=== PATIENT | male | born 1995 | race Caucasian/White ===

== ENCOUNTER 2018-03-24 05:13 | Emergency (ER) | payer SELFPAY ==
--- NOTE | 2018-03-24 05:34 | ER ---
Nurse's Notes [facility] Name: David Lai Age: 22 yrs Sex: Male : 1995 Arrival Date: 03/24/2018 Time: 05:18 Bed 8 Private MD: Diagnosis: External hemorrhoids Presentation: 03/24 05:25 Presenting complaint: Patient states: he went to use the restroom when he woke up this aa1 morning and had a painful knot near his rectum. Transition of care: patient was not received from another setting of care. Onset of symptoms was March 24, 2018. Risk Assessment: Do you want to hurt yourself or someone else? Patient reports no desire to harm self or others. Initial Sepsis Screen: Does the patient meet any 2 criteria? No. Patient's initial sepsis screen is negative. Does the patient have a suspected source of infection? No. Patient's initial sepsis screen is negative. Care prior to arrival: None. 05:25 Method Of Arrival: Ambulatory aa1 05:25 Acuity: ASHLEY 3 aa1 Triage Assessment: 05:30 General: Appears in no apparent distress. uncomfortable, slender, Behavior is calm, bp cooperative, appropriate for age. Pain: Complains of pain in gluteal cleft. Historical: - Allergies: 05:27 No Known Allergies; aa1 - Home Meds: 05:27 None [Active]; aa1 - PMHx: 05:27 None; aa1 - PSHx: 05:27 hydrocele repair; aa1 - Immunization history:: Adult Immunizations up to date. - Social history:: Smoking status: Patient uses tobacco products, smokes one pack cigarettes per day. - Ebola Screening: : No symptoms or risks identified at this time. - Family history:: not pertinent. - Hospitalizations: : No recent hospitalization is reported. Screenin:40 Abuse screen: Denies threats or abuse. Denies injuries from another. Nutritional bp screening: No deficits noted. Tuberculosis screening: No symptoms or risk factors identified. Fall Risk None identified. Assessment: 05:20 General: Appears in no apparent distress. uncomfortable, Behavior is calm, cooperative, ao appropriate for age. Pain: Complains of pain in rectal. Neuro: Level of Consciousness is awake, alert, obeys commands, Oriented to person, place, time, situation, Appropriate for age Moves all extremities. Speech is normal, Facial symmetry appears normal. Cardiovascular: Capillary refill < 3 seconds Patient's skin is warm and dry. Respiratory: Airway is patent Respiratory effort is even, unlabored, Respiratory pattern is regular, symmetrical. GI: Abdomen is non-distended. GI: Reports Rectal like abscess that show up this morning. : No signs and/or symptoms were reported regarding the genitourinary system. EENT: No signs and/or symptoms were reported regarding the EENT system. Derm: Skin is intact, Skin is pink, warm \T\ dry. Skin temperature is warm. Musculoskeletal: No signs and/or symptoms reported regarding the musculoskeletal system. 05:40 Reassessment: PT D/C HOME AMBULATORY, DX WITH EXTERNAL HEMORRHOIDS. bp Vital Signs: 05:27 BP 111 / 73; Pulse 95; Resp 16; Temp 98.0(O); Pulse Ox 100% on R/A; Weight 61.23 kg; aa1 Height 5 ft. 9 in. (175.26 cm); Pain 7/10; 05:27 Body Mass Index 19.94 (61.23 kg, 175.26 cm) aa1 ED Course: 05:18 Patient arrived in ED. al2 05:19 Shekhar Land MD is Attending Physician. rn 05:27 Triage completed. aa1 05:27 Arm band placed on right wrist. Patient placed in an exam room, on a stretcher. aa1 05:33 Enrique Flores MD is Referral Physician. rn 05:39 Crow Tracy RN is Primary Nurse. ao 05:40 Patient has correct armband on for positive identification. Bed in low position. Call bp light in reach. 05:40 No provider procedures requiring assistance completed. Patient did not have IV access bp during this emergency room visit. Administered Medications: No medications were administered Outcome: 05:34 Discharge ordered by . rn 05:40 Discharged to home ambulatory. bp 05:40 Condition: stable 05:40 Discharge instructions given to patient, Instructed on discharge instructions, follow up and referral plans. medication usage, Demonstrated understanding of instructions, follow-up care, medications, Prescriptions given X 1. 05:42 Patient left the ED. ao Signatures: Zahira Castillo RN RN aa1 Land, Shekhar, MD MD rn Tracy, Crow, RN RN ao Syeda, Tommy, RN RN bp Love, Kendra al2
--- NOTE | 2018-03-24 05:34 | EDPHYS ---
Physician Documentation [facility] Name: David Lai Age: 22 yrs Sex: Male : 1995 Arrival Date: 03/24/2018 Time: 05:18 Bed 8 Private MD: ED Physician Shekhar Land HPI: 03/24 05:30 This 22 yrs old Male presents to ER via Ambulatory with complaints of Rectal rn pain/swelling. 05:30 The patient presents to the emergency department with pain in the rectal area, that is rn mild. Onset: The symptoms/episode began/occurred at an unknown time. Modifying factors: The symptoms are alleviated by nothing, The symptoms are aggravated by bowel movement. It is unknown whether or not the patient has had similar symptoms in the past. Reports noticed swelling near anus today when wiping, no fever, only pain when wipes, has noticed bright red blood when wiping in past. . Historical: - Allergies: 05:27 No Known Allergies; aa1 - Home Meds: 05:27 None [Active]; aa1 - PMHx: 05:27 None; aa1 - PSHx: 05:27 hydrocele repair; aa1 - Immunization history:: Adult Immunizations up to date. - Social history:: Smoking status: Patient uses tobacco products, smokes one pack cigarettes per day. - Ebola Screening: : No symptoms or risks identified at this time. - Family history:: not pertinent. - Hospitalizations: : No recent hospitalization is reported. ROS: 05:30 Constitutional: Negative for fever, chills, and weight loss, Abdomen/GI: + constipation rn Exam: 05:30 Constitutional: This is a well developed, well nourished patient who is awake, alert, rn and in no acute distress. Abdomen/GI: Soft, non-tender, No evidence of tenderness throughout. + external enlarged but not thrombosed hemorrhoid at 9 o'clock position, mild tenderness, no erythema/warmth/bleeding Vital Signs: 05:27 BP 111 / 73; Pulse 95; Resp 16; Temp 98.0(O); Pulse Ox 100% on R/A; Weight 61.23 kg; aa1 Height 5 ft. 9 in. (175.26 cm); Pain 7/10; 05:27 Body Mass Index 19.94 (61.23 kg, 175.26 cm) aa1 MDM: 05:19 Patient medically screened. rn 05:30 Differential diagnosis: hemorrhoids, abscess. Data reviewed: vital signs, nurses notes, rn and as a result, I will discharge patient. Counseling: I had a detailed discussion with the patient and/or guardian regarding: the historical points, exam findings, and any diagnostic results supporting the discharge/admit diagnosis, the need for outpatient follow up, to return to the emergency department if symptoms worsen or persist or if there are any questions or concerns that arise at home. Special discussion: I discussed with the patient/guardian in detail that at this point there is no indication for admission to the hospital. It is understood, however, that if the symptoms persist or worsen the patient needs to return immediately for re-evaluation. Based on the history and exam findings, there is no indication for further emergent testing or inpatient evaluation. I discussed with the patient/guardian the need to see the general surgeon for further evaluation of the symptoms. Administered Medications: No medications were administered Disposition: 03/24/18 05:34 Discharged to Home. Impression: External hemorrhoids. - Condition is Stable. - Discharge Instructions: Hemorrhoids, Sitz Bath. - Prescriptions for Anusol- HC 2.5 % Rectal Cream - Apply to affected area 1 application by TOPICAL route every 8 hours As needed; 30 gram. - Medication Reconciliation Form, Thank You Letter, Antibiotic Education, Prescription Opioid Use form. - Follow up: Enrique Flores MD; When: As needed; Reason: Recheck today's complaints, Re-evaluation by your physician. - Problem is new. - Symptoms are unchanged. Signatures: Zahira Castillo RN RN aa1 Shekhar Land MD MD rn Ortiz, Alex, RN RN ao Corrections: (The following items were deleted from the chart) 05:42 05:34 03/24/2018 05:34 Discharged to Home. Impression: External hemorrhoids. Condition ao is Stable. Forms are Medication Reconciliation Form, Thank You Letter, Antibiotic Education, Prescription Opioid Use. Follow up: Enrique Flores; When: As needed; Reason: Recheck today's complaints, Re-evaluation by your physician. Problem is new. Symptoms are unchanged. rn
== END 2018-03-24 05:42 | disposition home or self-care (01) ==
LOC: ER 05:13
DX: K64.4 Residual hemorrhoidal skin tags (principal); F17.210 Nicotine dependence, cigarettes, uncomplicated
CPT/HCPCS: 99282

== ENCOUNTER 2018-12-25 18:36 | Emergency (ER) | payer SELFPAY ==
--- NOTE | 2018-12-25 19:53 | ER ---
Nurse's Notes [facility] Name: David Lai Age: 23 yrs Sex: Male : 1995 Arrival Date: 12/25/2018 Time: 18:39 Bed 27 Private MD: Diagnosis: Cough Presentation: 12/25 18:46 Presenting complaint: Patient states: left sided rib pain with cough and shortness of iw breath for a few days, reports chills but denies fever. Transition of care: patient was not received from another setting of care. Onset of symptoms was December 25, 2018. Risk Assessment: Do you want to hurt yourself or someone else? Patient reports no desire to harm self or others. Initial Sepsis Screen: Does the patient meet any 2 criteria? No. Patient's initial sepsis screen is negative. Does the patient have a suspected source of infection? No. Patient's initial sepsis screen is negative. Care prior to arrival: None. 18:46 Method Of Arrival: Ambulatory iw 18:46 Acuity: ASHLEY 4 iw Triage Assessment: 18:58 General: Appears in no apparent distress. comfortable. Respiratory: the patient has mg2 mild shortness of breath. Respiratory: Onset: The symptoms/episode began/occurred 4 days ago. Historical: - Allergies: 18:46 No Known Allergies; iw - PMHx: 18:46 None; iw - PSHx: 18:46 hydrocele repair; iw - Immunization history:: Adult Immunizations up to date. - Social history:: Smoking status: Patient uses tobacco products. - Ebola Screening: : Patient negative for fever greater than or equal to 101.5 degrees Fahrenheit, and additional compatible Ebola Virus Disease symptoms Patient denies exposure to infectious person Patient denies travel to an Ebola-affected area in the 21 days before illness onset No symptoms or risks identified at this time. Screenin:57 Abuse screen: Denies threats or abuse. Denies injuries from another. Nutritional mg2 screening: No deficits noted. Tuberculosis screening: No symptoms or risk factors identified. Fall Risk None identified. Assessment: 18:55 General: Appears in no apparent distress. comfortable, Behavior is calm, cooperative. mg2 Pain: Denies pain. Neuro: Level of Consciousness is awake, alert, obeys commands, Oriented to person, place, time, situation. Cardiovascular: Capillary refill < 3 seconds Patient's skin is warm and dry. Respiratory: Airway is patent Respiratory effort is even, unlabored, Respiratory pattern is regular, symmetrical, Breath sounds are clear bilaterally. in right upper lobe, left upper lobe, right middle lobe, left lower lobe and right lower lobe. Respiratory: Reports cough that is productive, since 4 days now. GI: No signs and/or symptoms were reported involving the gastrointestinal system. : No signs and/or symptoms were reported regarding the genitourinary system. EENT: No signs and/or symptoms were reported regarding the EENT system. Derm: Skin is intact, is healthy with good turgor, Skin is pink, warm \T\ dry. normal. Musculoskeletal: Circulation, motion, and sensation intact. Capillary refill < 3 seconds. 19:30 Cardiovascular: Rhythm is regular. mg2 Vital Signs: 18:47 BP 121 / 71; Pulse 77; Resp 16; Temp 98.8; Pulse Ox 98% on R/A; Weight 65.77 kg; Pain iw 6/10; 19:50 BP 104 / 75; Pulse 88; Resp 18; Pulse Ox 98% on R/A; Pain 0/10; mg2 ED Course: 18:39 Patient arrived in ED. rg4 18:39 Farrah Bray FNP-C [facility]. kb 18:39 Shekhar Land MD is Attending Physician. kb 18:45 Arm band placed on. iw 18:47 Sean Devries, RN is Primary Nurse. mg2 18:47 Triage completed. iw 18:57 No provider procedures requiring assistance completed. Patient did not have IV access mg2 during this emergency room visit. 18:58 Chest Pa And Lat (2 Views) XRAY In Process Unspecified. EDMS 18:58 Patient has correct armband on for positive identification. mg2 18:58 Flu and/or RSV swab sent to lab. mg2 Administered Medications: No medications were administered Outcome: 19:53 Discharge ordered by . kb 19:59 Discharged to home ambulatory. mg2 19:59 Condition: stable 19:59 Discharge instructions given to patient, Instructed on discharge instructions, follow up and referral plans. Demonstrated understanding of instructions, follow-up care. 20:00 Patient left the ED. mg2 Signatures: Dispatcher [employer] EDIA Farrah Bray FNP-C FNP-Evelina Baker RN RN Ange Velazquez rg4 Gardose, Sean, RN RN mg2
--- NOTE | 2018-12-25 19:53 | EDPHYS ---
Physician Documentation [facility] Name: David Lai Age: 23 yrs Sex: Male : 1995 Arrival Date: 12/25/2018 Time: 18:39 Bed 27 Private MD: ED Physician Shekhar Land HPI: 12/25 18:45 This 23 yrs old Male presents to ER via Unassigned with complaints of Cough, kb Breathing Difficulty. 18:45 The patient or guardian reports cough, that is intermittent, described as moderate, kb with productive sputum. Onset: The symptoms/episode began/occurred 4 day(s) ago. Severity of symptoms: At their worst the symptoms were moderate, in the emergency department the symptoms are unchanged. Modifying factors: The symptoms are alleviated by nothing, the symptoms are aggravated by nothing. Associated signs and symptoms: Pertinent positives: chest pain, Pertinent negatives: diarrhea, ear ache, fever, nausea, rhinorrhea, sore throat, vomiting. The patient has not experienced similar symptoms in the past. The patient has not recently seen a physician. Pt reports cough for 4 days. Now having pain to left lower chest with cough and deep breath. Historical: - Allergies: 18:46 No Known Allergies; iw - PMHx: 18:46 None; iw - PSHx: 18:46 hydrocele repair; iw - Immunization history:: Adult Immunizations up to date. - Social history:: Smoking status: Patient uses tobacco products. - Ebola Screening: : Patient negative for fever greater than or equal to 101.5 degrees Fahrenheit, and additional compatible Ebola Virus Disease symptoms Patient denies exposure to infectious person Patient denies travel to an Ebola-affected area in the 21 days before illness onset No symptoms or risks identified at this time. ROS: 18:46 Constitutional: Negative for fever, chills, and weight loss, Neck: Negative for injury, kb pain, and swelling, Abdomen/GI: Negative for abdominal pain, nausea, vomiting, diarrhea, and constipation, Back: Negative for injury and pain, MS/Extremity: Negative for injury and deformity, Skin: Negative for injury, rash, and discoloration, Neuro: Negative for headache, weakness, numbness, tingling, and seizure. 18:46 Cardiovascular: Positive for chest pain, with cough, Negative for edema, orthopnea, palpitations, paroxysmal nocturnal dyspnea. 18:46 Respiratory: Positive for cough. Exam: 18:47 Constitutional: This is a well developed, well nourished patient who is awake, alert, kb and in no acute distress. Head/Face: Normocephalic, atraumatic. ENT: Nares patent. No nasal discharge, no septal abnormalities noted. Tympanic membranes are normal and external auditory canals are clear. Oropharynx with no redness, swelling, or masses, exudates, or evidence of obstruction, uvula midline. Mucous membranes moist. Neck: Trachea midline, no thyromegaly or masses palpated, and no cervical lymphadenopathy. Supple, full range of motion without nuchal rigidity, or vertebral point tenderness. No Meningismus. Chest/axilla: Normal chest wall appearance and motion. Nontender with no deformity. No lesions are appreciated. Cardiovascular: Regular rate and rhythm with a normal S1 and S2. No gallops, murmurs, or rubs. Normal PMI, no JVD. No pulse deficits. Respiratory: Lungs have equal breath sounds bilaterally, clear to auscultation and percussion. No rales, rhonchi or wheezes noted. No increased work of breathing, no retractions or nasal flaring. Abdomen/GI: Soft, non-tender, with normal bowel sounds. No distension or tympany. No guarding or rebound. No evidence of tenderness throughout. Back: No spinal tenderness. No costovertebral tenderness. Full range of motion. Skin: Warm, dry with normal turgor. Normal color with no rashes, no lesions, and no evidence of cellulitis. MS/ Extremity: Pulses equal, no cyanosis. Neurovascular intact. Full, normal range of motion. Neuro: Awake and alert, GCS 15, oriented to person, place, time, and situation. Cranial nerves II-XII grossly intact. Motor strength 5/5 in all extremities. Sensory grossly intact. Cerebellar exam normal. Normal gait. Vital Signs: 18:47 BP 121 / 71; Pulse 77; Resp 16; Temp 98.8; Pulse Ox 98% on R/A; Weight 65.77 kg; Pain iw 6/10; 19:50 BP 104 / 75; Pulse 88; Resp 18; Pulse Ox 98% on R/A; Pain 0/10; mg2 MDM: 18:42 Patient medically screened. kb 18:47 Data reviewed: vital signs, nurses notes. kb 19:52 Data interpreted: Pulse oximetry: on room air is 98 %. Interpretation: normal. kb Counseling: I had a detailed discussion with the patient and/or guardian regarding: the historical points, exam findings, and any diagnostic results supporting the discharge/admit diagnosis, lab results, radiology results, the need for outpatient follow up, a family practitioner, to return to the emergency department if symptoms worsen or persist or if there are any questions or concerns that arise at home. 12/25 18:44 Order name: Flu; Complete Time: 19:27 kb 12/25 18:44 Order name: Chest Pa And Lat (2 Views) XRAY kb Administered Medications: No medications were administered Disposition: 12/26 07:00 Co-signature as Attending Physician, Shekhar Land MD. rn Disposition: 12/25/18 19:53 Discharged to Home. Impression: Cough. - Condition is Stable. - Discharge Instructions: Costochondritis, [id number], Cough, Adult, [id number]. - Medication Reconciliation Form, Thank You Letter, Antibiotic Education, Prescription Opioid Use form. - Follow up: Emergency Department; When: As needed; Reason: Worsening of condition. Follow up: Private Physician; When: 2 - 3 days; Reason: Recheck today's complaints, Continuance of care, Re-evaluation by your physician. Signatures: Dispatcher [employer] EDSD Farrah Bray, WEBSPHERE DEVELOPER-C WEBSPHERE DEVELOPER-Ckb Evelina Chakraborty RN RN iw Nieto, Roman, MD MD rn Gardose, Michele, RN RN mg2 Corrections: (The following items were deleted from the chart) 12/25 20:00 19:53 12/25/2018 19:53 Discharged to Home. Impression: Cough. Condition is Stable. mg2 Forms are Medication Reconciliation Form, Thank You Letter, Antibiotic Education, Prescription Opioid Use. Follow up: Emergency Department; When: As needed; Reason: Worsening of condition. Follow up: Private Physician; When: 2 - 3 days; Reason: Recheck today's complaints, Continuance of care, Re-evaluation by your physician. kb
--- NOTE | 2018-12-25 20:21 | RAD REPORT ---
EXAM DESCRIPTION: RAD - Chest Pa And Lat (2 Views) - 12/25/2018 7:01 pm CLINICAL HISTORY: Cough, left-sided chest and rib pain COMPARISON: None. TECHNIQUE: PA and lateral views of the chest were obtained. FINDINGS: The lungs are clear. Heart size is normal and central vasculature is within normal limit s. No pleural effusion or pneumothorax seen. No acute bony finding noted. No aortic abnormality. IMPRESSION: No acute cardiopulmonary process.
== END 2018-12-25 20:00 | disposition home or self-care (01) ==
LOC: ER 18:36
DX: R05 Cough (principal); Z72.0 Tobacco use
CPT/HCPCS: 71046; 87804; 99283

== ENCOUNTER 2018-12-27 05:36 | Emergency (ER) | payer SELFPAY ==
[2018-12-27] MEDS ORDERED: KETOROLAC 30 MG/ML INJ ONE (06:29)
[2018-12-27] MEDS ORDERED: NA CHLORIDE 0.9% 1,000 ML ONE ×2 (06:29→07:11)
[2018-12-27 06:38] LABS: Absolute Lymphocytes (CBC) 2.2 K/uL (0.7-4.9); Absolute Monocytes 0.6 K/uL (0.1-1.3); Absolute Neutrophil 3.7 K/uL (1.8-8.0); Basophils % 0.9 % (0-1.3); Eosinophils % 1.6 % (0-4.4); Hematocrit 56.7 % (39.6-49.0); Lymphocytes % 33.2 % (15.3-44.8); MPV 8.9 fL (7.6-11.3); Monocytes % 9.4 % (3.3-12.3); RBC Red Blood Cell Count 6.22 M/uL (4.33-5.43)
[2018-12-27 06:56] LABS: Potassium 3.4 mmol/L (3.5-5.1)
--- NOTE | 2018-12-27 07:51 | RAD REPORT ---
EXAM DESCRIPTION: CT - Chest For Pe Angio - 12/27/2018 7:35 am CLINICAL HISTORY: Chest pain, shortness of breath, rib pain COMPARISON: Chest films same date TECHNIQUE: Dynamically enhanced 3 mm thick images of the chest were obtained during administration o f approximately 150mL Isovue 370 IV contrast. Coronal and oblique MIP reconstruction images were gene rated and reviewed. Exam utilizes a protocol to evaluate the pulmonary arterial tree. All CT scans are performed using dose optimization technique as appropriate and may include automated exposure control or mA/KV adjustment according to patient size. FINDINGS: No pulmonary emboli are identified. The aorta as imaged shows no acute or suspicious finding. No pericardial thickening or effusion. No infiltrate or mass in the lung parenchyma. No pleural effusion or pleural thickening. No mediastinal or hilar suspicious masses. No chest wall masses or abnormal axillary lymphadenopathy. No fracture or other rib lesion identifiable. Portions of the inferior most aspect ribcage excluded f rom view on CT chest imaging. IMPRESSION: No pulmonary emboli identified. No other significant or suspicious findings.
--- NOTE | 2018-12-27 09:23 | EDPHYS ---
Physician Documentation [facility] Name: David Lai Age: 23 yrs Sex: Male : 1995 Arrival Date: 12/27/2018 Time: 05:37 Bed 6 Private MD: ED Physician Reid Brock HPI: 12/27 06:53 This 23 yrs old Male presents to ER via Ambulatory with complaints of Painful snw Cough. 06:53 The patient or guardian reports cough. Onset: The symptoms/episode began/occurred 1 snw week(s) ago, and became worse yesterday. Severity of symptoms: At their worst the symptoms were moderate, severe. Modifying factors: The symptoms are alleviated by nothing. Associated signs and symptoms: Pertinent positives: chest pain, with cough, with movement, with breathing. The patient has not experienced similar symptoms in the past. The patient has been recently seen by a physician: The patient has been recently seen at the [facility], this week. Historical: - Allergies: 05:48 No Known Allergies; bb - Home Meds: 05:48 None [Active]; bb - PMHx: 05:48 None; bb - PSHx: 05:48 hydrocelectomy; bb - Immunization history:: Adult Immunizations up to date. - Social history:: Smoking status: Patient uses tobacco products, smokes one pack cigarettes per day. Patient uses alcohol, weekly. street drugs, marijuana. - Ebola Screening: : No symptoms or risks identified at this time. ROS: 06:18 Constitutional: Negative for fever, chills, and weight loss, Eyes: Negative for injury, snw pain, redness, and discharge, ENT: Negative for injury, pain, and discharge, Neck: Negative for injury, pain, and swelling, Abdomen/GI: Negative for abdominal pain, nausea, vomiting, diarrhea, and constipation, Back: Negative for injury and pain, : Negative for injury, bleeding, discharge, and swelling, MS/Extremity: Negative for injury and deformity, Skin: Negative for injury, rash, and discoloration, Neuro: Negative for headache, weakness, numbness, tingling, and seizure. 06:18 Cardiovascular: Positive for chest pain, with cough, with movement, of the left lateral anterior chest. 06:18 Respiratory: Positive for cough, with no reported sputum, pleurisy, of the left lateral anterior chest. Exam: 06:18 Head/Face: Normocephalic, atraumatic. Eyes: Pupils equal round and reactive to light, snw extra-ocular motions intact. Lids and lashes normal. Conjunctiva and sclera are non-icteric and not injected. Cornea within normal limits. Periorbital areas with no swelling, redness, or edema. ENT: Nares patent. No nasal discharge, no septal abnormalities noted. Tympanic membranes are normal and external auditory canals are clear. Oropharynx with no redness, swelling, or masses, exudates, or evidence of obstruction, uvula midline. Mucous membranes moist. Neck: Trachea midline, no thyromegaly or masses palpated, and no cervical lymphadenopathy. Supple, full range of motion without nuchal rigidity, or vertebral point tenderness. No Meningismus. 06:18 Cardiovascular: Regular rate and rhythm with a normal S1 and S2. No gallops, murmurs, or rubs. Normal PMI, no JVD. No pulse deficits. 06:18 Abdomen/GI: Soft, non-tender, with normal bowel sounds. No distension or tympany. No guarding or rebound. No evidence of tenderness throughout. Back: No spinal tenderness. No costovertebral tenderness. Full range of motion. Skin: Warm, dry with normal turgor. Normal color with no rashes, no lesions, and no evidence of cellulitis. MS/ Extremity: Pulses equal, no cyanosis. Neurovascular intact. Full, normal range of motion. Neuro: Awake and alert, GCS 15, oriented to person, place, time, and situation. Cranial nerves II-XII grossly intact. Motor strength 5/5 in all extremities. Sensory grossly intact. Cerebellar exam normal. Normal gait. 06:18 Constitutional: The patient appears frail, in obvious pain, uncomfortable, unkempt. 06:18 Chest/axilla: Inspection: normal, Palpation: tenderness, that is moderate, of the left lateral anterior chest and left breast. 06:18 ECG was reviewed by the Attending Physician. 06:18 Respiratory: the patient does not display signs of respiratory distress, Respirations: shallow respirations, splinting, that is moderate, Breath sounds: are clear throughout. Vital Signs: 05:48 BP 128 / 81; Pulse 88; Resp 16 S; Temp 97.6(O); Pulse Ox 97% on R/A; Weight 63.5 kg bb (R); Height 5 ft. 9 in. (175.26 cm) (R); Pain 10/10; 06:30 BP 111 / 69; Pulse 82; Resp 17; Pulse Ox 98% ; rr5 07:13 BP 112 / 65; Pulse 66; Resp 18; Pulse Ox 97% on R/A; hj 08:30 BP 97 / 75; Pulse 48; Resp 18; Pulse Ox 100% on R/A; hj 09:35 BP 100 / 75; Pulse 55; Resp 18; Pulse Ox 100% on R/A; hj 05:48 Body Mass Index 20.67 (63.50 kg, 175.26 cm) bb 08:30 provider aware; hj MDM: 06:08 Patient medically screened. snw 09:23 Data reviewed: vital signs, nurses notes. Data interpreted: Pulse oximetry: on room air snw is 100 %. Interpretation: normal. Counseling: I had a detailed discussion with the patient and/or guardian regarding: the historical points, exam findings, and any diagnostic results supporting the discharge/admit diagnosis, lab results, radiology results, the need for outpatient follow up, to return to the emergency department if symptoms worsen or persist or if there are any questions or concerns that arise at home, smoking cessation. Special discussion: Based on the patient's history, exam, and Dx evaluation, there is no indication for emergent intervention or inpatient Tx. It is understood by the patient/guardian that if the Sx's persist or worsen they need to return immediately for re-evaluation. Based on the history and exam findings, there is no indication for further emergent testing or inpatient evaluation. I discussed with the patient/guardian the need to see the primary care provider for further evaluation of the symptoms. 12/27 06:14 Order name: CBC with Diff; Complete Time: 06:56 snw 12/27 06:14 Order name: Blood Culture Adult (2) snw 12/27 06:14 Order name: CT Chest For PE Angio; Complete Time: 07:56 snw 12/27 06:14 Order name: Chem 7; Complete Time: 06:57 snw 12/27 06:14 Order name: EKG; Complete Time: 06:15 snw Administered Medications: 06:30 Drug: NS 0.9% 1000 ml Route: IV; Rate: 1 bolus; Site: right antecubital; rr5 08:00 Follow up: IV Status: Completed infusion; IV Intake: 1000ml hj 06:30 Drug: NS 0.9% 1000 ml Route: IV; Rate: 1 bolus; Site: right antecubital; ea 09:35 Follow up: IV Status: Completed infusion; IV Intake: 1000ml hj 06:31 Drug: TORadol 30 mg Route: IVP; Site: right antecubital; rr5 07:00 Follow up: Response: No adverse reaction lobo Disposition: 19:03 Co-signature as Attending Physician, Reid Brock MD. brandon Disposition: 12/27/18 09:22 Discharged to Home. Impression: Pleurisy, Volume depletion. - Condition is Stable. - Discharge Instructions: Dehydration, Adult, Pleurisy, Rehydration, Adult. - Prescriptions for Diclofenac Sodium 75 mg Oral Tablet Sustained Release - take 1 tablet by ORAL route 2 times per day; 30 tablet. - Medication Reconciliation Form, Thank You Letter, Antibiotic Education, Prescription Opioid Use form. - Follow up: Private Physician; When: 2 - 3 days; Reason: Recheck today's complaints, Continuance of care, Re-evaluation by your physician. Follow up: Emergency Department; When: As needed; Reason: Worsening of condition. Signatures: Dispatcher [employer] EDMS Reid Brock MD MD pkRamona Fisher, PEDIATRIC DENTIST-C PEDIATRIC DENTIST-Csnw Xochitl Clayton RN RN bb Joaquin, Henry, RN RN hj Antunez, Elena, RN RN ea Roque, Raymond RN RN rr5 Corrections: (The following items were deleted from the chart) 09:45 09:22 12/27/2018 09:22 Discharged to Home. Impression: Pleurisy; Volume depletion. hj Condition is Stable. Forms are Medication Reconciliation Form, Thank You Letter, Antibiotic Education, Prescription Opioid Use. Follow up: Private Physician; When: 2 - 3 days; Reason: Recheck today's complaints, Continuance of care, Re-evaluation by your physician. Follow up: Emergency Department; When: As needed; Reason: Worsening of condition. snw
--- NOTE | 2018-12-27 09:23 | ER ---
Nurse's Notes [facility] Name: David Lai Age: 23 yrs Sex: Male : 1995 Arrival Date: 12/27/2018 Time: 05:37 Bed 6 Private MD: Diagnosis: Pleurisy;Volume depletion Presentation: 12/27 05:45 Presenting complaint: Patient states: he was seen yesterday for rib pain and told to bb return if symptoms worsen pt states now he is unable to get comfortable and is having left side pain which hurts worse whenever he moves. Transition of care: patient was not received from another setting of care. Onset of symptoms was December 27, 2018. Risk Assessment: Do you want to hurt yourself or someone else? Patient reports no desire to harm self or others. Initial Sepsis Screen: Does the patient meet any 2 criteria? No. Patient's initial sepsis screen is negative. Does the patient have a suspected source of infection? No. Patient's initial sepsis screen is negative. Care prior to arrival: None. 05:45 Method Of Arrival: Ambulatory bb 05:45 Acuity: ASHLEY 3 bb Historical: - Allergies: 05:48 No Known Allergies; bb - Home Meds: 05:48 None [Active]; bb - PMHx: 05:48 None; bb - PSHx: 05:48 hydrocelectomy; bb - Immunization history:: Adult Immunizations up to date. - Social history:: Smoking status: Patient uses tobacco products, smokes one pack cigarettes per day. Patient uses alcohol, weekly. street drugs, marijuana. - Ebola Screening: : No symptoms or risks identified at this time. Screenin:46 Abuse screen: Denies threats or abuse. Denies injuries from another. Nutritional rr5 screening: No deficits noted. Tuberculosis screening: No symptoms or risk factors identified. Fall Risk None identified. Total Dubois Fall Scale indicates No Risk (0-24 pts). Assessment: 05:45 General: Appears in no apparent distress. uncomfortable, Behavior is calm, cooperative, rr5 appropriate for age. Pain: Complains of pain in left chest Pain does not radiate. Pain currently is 10 out of 10 on a pain scale. Quality of pain is described as aching, Pain began gradually, Is intermittent. Neuro: Level of Consciousness is awake, alert, obeys commands, Oriented to person, place, time, situation, Appropriate for age. Cardiovascular: Reports chest pain, Capillary refill < 3 seconds Patient's skin is warm and dry. Respiratory: Airway is patent Respiratory effort is even, unlabored, Respiratory pattern is regular, symmetrical. GI: No signs and/or symptoms were reported involving the gastrointestinal system. : No signs and/or symptoms were reported regarding the genitourinary system. EENT: No signs and/or symptoms were reported regarding the EENT system. 05:45 Derm: Skin is intact, Skin temperature is warm. Musculoskeletal: Capillary refill < 3 rr5 seconds, Range of motion: intact in all extremities. 05:45 Respiratory: Reports pain with cough. rr5 06:32 Reassessment: Patient appears in no apparent distress at this time. No changes from rr5 previously documented assessment. Patient is alert, oriented x 3, equal unlabored respirations, skin warm/dry/pink. blood specimen sent to laboratory. 07:11 General: Appears in no apparent distress. uncomfortable, Behavior is calm, cooperative, hj appropriate for age. Pain: Complains of pain in left breast and left lateral anterior chest Pain currently is 5 out of 10 on a pain scale. Quality of pain is described as aching, Pain began gradually, Is intermittent. Neuro: Level of Consciousness is awake, alert, obeys commands, Oriented to person, place, time, situation, Appropriate for age. Cardiovascular: Capillary refill < 3 seconds Patient's skin is warm and dry. Respiratory: Reports pain with cough Airway is patent Respiratory effort is even, unlabored, Respiratory pattern is regular, symmetrical. GI: No signs and/or symptoms were reported involving the gastrointestinal system. : No signs and/or symptoms were reported regarding the genitourinary system. EENT: No signs and/or symptoms were reported regarding the EENT system. Derm: Skin is intact, Skin temperature is warm. Musculoskeletal: Capillary refill < 3 seconds, Range of motion:. 07:29 Reassessment: wheeled to CT;. hj 08:30 Reassessment: Patient and/or family updated on plan of care and expected duration. Pain hj level reassessed. Patient is alert, oriented x 3, equal unlabored respirations, skin warm/dry/pink. HR drops from 70's- 48-49/ min; provider notified;. 09:34 Reassessment: Patient and/or family updated on plan of care and expected duration. Pain hj level reassessed. Patient is alert, oriented x 3, equal unlabored respirations, skin warm/dry/pink. for D/C; awaiting ride;. 09:42 Reassessment: per pt: "i couldn't pee man"; provider aware;. hj Vital Signs: 05:48 BP 128 / 81; Pulse 88; Resp 16 S; Temp 97.6(O); Pulse Ox 97% on R/A; Weight 63.5 kg bb (R); Height 5 ft. 9 in. (175.26 cm) (R); Pain 10/10; 06:30 BP 111 / 69; Pulse 82; Resp 17; Pulse Ox 98% ; rr5 07:13 BP 112 / 65; Pulse 66; Resp 18; Pulse Ox 97% on R/A; hj 08:30 BP 97 / 75; Pulse 48; Resp 18; Pulse Ox 100% on R/A; hj 09:35 BP 100 / 75; Pulse 55; Resp 18; Pulse Ox 100% on R/A; hj 05:48 Body Mass Index 20.67 (63.50 kg, 175.26 cm) bb 08:30 provider aware; hj ED Course: 05:37 Patient arrived in ED. ds1 05:46 Santi Rivas, VIKRAM is Primary Nurse. rr5 05:46 Triage completed. bb 05:47 Patient has correct armband on for positive identification. Bed in low position. Call rr5 light in reach. Side rails up X 1. Pulse ox on. NIBP on. 05:48 Arm band placed on Patient placed in an exam room, on a stretcher, on pulse oximetry. bb 06:07 Ramona Mott FNP-C is PHCP. snw 06:07 Reid Brock MD is Attending Physician. snw 06:25 Inserted saline lock: 20 gauge in right antecubital area, using aseptic technique. rr5 ,using aseptic technique. by Nohelia SUE Blood collected. 06:32 conduit cleaner on. rr5 07:06 Report given to Katherine SUE and Greg SUE. ea 07:34 CT Chest For PE Angio In Process Unspecified. EDMS 09:43 No provider procedures requiring assistance completed. IV discontinued, intact, hj bleeding controlled, No redness/swelling at site. Pressure dressing applied. Administered Medications: 06:30 Drug: NS 0.9% 1000 ml Route: IV; Rate: 1 bolus; Site: right antecubital; rr5 08:00 Follow up: IV Status: Completed infusion; IV Intake: 1000ml hj 06:30 Drug: NS 0.9% 1000 ml Route: IV; Rate: 1 bolus; Site: right antecubital; ea 09:35 Follow up: IV Status: Completed infusion; IV Intake: 1000ml hj 06:31 Drug: TORadol 30 mg Route: IVP; Site: right antecubital; rr5 07:00 Follow up: Response: No adverse reaction ea Intake: 08:00 IV: 1000ml; Total: 1000ml. hj 09:35 IV: 1000ml; Total: 2000ml. Outcome: 09:22 Discharge ordered by . elio 09:44 Discharged to home ambulatory. 09:44 Condition: stable 09:44 Discharge instructions given to patient, Instructed on discharge instructions, follow up and referral plans. medication usage, Demonstrated understanding of instructions, follow-up care, medications, Prescriptions given X 1. 09:45 Patient left the ED. Signatures: Dispatcher [employer] EDMS Ramona Mott, COMMERCIAL CRABBER-C COMMERCIAL CRABBER-CsnClara Uribe ds1 Xochitl Clayton RN RN Greg Jones, Nohelia Montez RN, RN RN ea Roque, Raymond RN RN rr5
== END 2018-12-27 09:45 | disposition home or self-care (01) ==
LOC: ER 05:36
DX: R09.1 Pleurisy (principal); E86.9 Volume depletion, unspecified; R05 Cough; F17.210 Nicotine dependence, cigarettes, uncomplicated
CPT/HCPCS: 36415; 71275; 80048; 85025; 87040; 93005; 96361; 96374; 99284; J7030; Q9967

== ENCOUNTER 2020-04-05 22:33 | Emergency (ER) | payer SELFPAY ==
[2020-04-06 01:18] LABS: Urine Culture Reflex Order REFLEXED
[2020-04-06 01:19] LABS: Urine Bacteria 20-50 /HPF (NONE SEEN); Urine RBC <5 /HPF (NONE SEEN)
--- NOTE | 2020-04-06 02:57 | EDPHYS ---
Physician Documentation [facility] Name: David Lai Age: 24 yrs Sex: Male : 1995 Arrival Date: 04/05/2020 Time: 22:35 Bed 16 Private MD: John Chaudhry HPI: 04/06 02:47 This 24 yrs old Male presents to ER via Ambulatory with complaints of Penile osmin Discharge. 02:47 The patient presents with urinary symptoms, dysuria, urinary frequency. Onset: The osmin symptoms/episode began/occurred 3 day(s) ago. Modifying factors: The symptoms are alleviated by nothing, the symptoms are aggravated by sexual intercourse. Associated signs and symptoms: The patient has no apparent associated signs or symptoms. The patient has not experienced similar symptoms in the past. Historical: - Allergies: 04/05 23:09 No Known Allergies; lp1 - Home Meds: 23:09 None [Active]; lp1 - PMHx: 23:09 None; lp1 - PSHx: 23:09 None; lp1 - Immunization history:: Adult Immunizations up to date. - Social history:: Smoking status: Patient reports the use of cigarette tobacco products, smokes one pack cigarettes per day. ROS: 04/06 02:50 Constitutional: Negative for fever, chills, and weight loss, Eyes: Negative for injury, osmin pain, redness, and discharge, ENT: Negative for injury, pain, and discharge, Neck: Negative for injury, pain, and swelling, Cardiovascular: Negative for chest pain, palpitations, and edema, Respiratory: Negative for shortness of breath, cough, wheezing, and pleuritic chest pain, Abdomen/GI: Negative for abdominal pain, nausea, vomiting, diarrhea, and constipation, Back: Negative for injury and pain, MS/Extremity: Negative for injury and deformity, Skin: Negative for injury, rash, and discoloration, Neuro: Negative for headache, weakness, numbness, tingling, and seizure, Psych: Negative for depression, anxiety, suicide ideation, homicidal ideation, and hallucinations, Allergy/Immunology: Negative for hives, rash, and allergies, Endocrine: Negative for neck swelling, polydipsia, polyuria, polyphagia, and marked weight changes, Hematologic/Lymphatic: Negative for swollen nodes, abnormal bleeding, and unusual bruising. : Positive for urinary symptoms, burning with urination, difficulty urinating, penile discharge, penile pain. Exam: 02:50 Constitutional: This is a well developed, well nourished patient who is awake, alert, osmin and in no acute distress. Head/Face: Normocephalic, atraumatic. Eyes: Pupils equal round and reactive to light, extra-ocular motions intact. Lids and lashes normal. Conjunctiva and sclera are non-icteric and not injected. Cornea within normal limits. Periorbital areas with no swelling, redness, or edema. ENT: Nares patent. No nasal discharge, no septal abnormalities noted. Tympanic membranes are normal and external auditory canals are clear. Oropharynx with no redness, swelling, or masses, exudates, or evidence of obstruction, uvula midline. Mucous membranes moist. Neck: Trachea midline, no thyromegaly or masses palpated, and no cervical lymphadenopathy. Supple, full range of motion without nuchal rigidity, or vertebral point tenderness. No Meningismus. Chest/axilla: Normal chest wall appearance and motion. Nontender with no deformity. No lesions are appreciated. Cardiovascular: Regular rate and rhythm with a normal S1 and S2. No gallops, murmurs, or rubs. Normal PMI, no JVD. No pulse deficits. Respiratory: Lungs have equal breath sounds bilaterally, clear to auscultation and percussion. No rales, rhonchi or wheezes noted. No increased work of breathing, no retractions or nasal flaring. Abdomen/GI: Soft, non-tender, with normal bowel sounds. No distension or tympany. No guarding or rebound. No evidence of tenderness throughout. Back: No spinal tenderness. No costovertebral tenderness. Full range of motion. Skin: Warm, dry with normal turgor. Normal color with no rashes, no lesions, and no evidence of cellulitis. MS/ Extremity: Pulses equal, no cyanosis. Neurovascular intact. Full, normal range of motion. Neuro: Awake and alert, GCS 15, oriented to person, place, time, and situation. Cranial nerves II-XII grossly intact. Motor strength 5/5 in all extremities. Sensory grossly intact. Cerebellar exam normal. Normal gait. Psych: Awake, alert, with orientation to person, place and time. Behavior, mood, and affect are within normal limits. 02:50 : CVA tenderness, is absent, Male external genitalia: Circumcision noted. Bladder: is normal, Sexual behavior: the patient is sexually active, and reports multiple partners. Vital Signs: 04/05 23:11 BP 112 / 75; Pulse 91; Resp 16; Temp 99(TE); Pulse Ox 99% on R/A; Weight 61.23 kg (R); lp1 Height 5 ft. 9 in. (175.26 cm); Pain 6/10; 23:11 Body Mass Index 19.94 (61.23 kg, 175.26 cm) lp1 MDM: 04/06 02:23 Patient medically screened. [facility] 02:52 Differential diagnosis: UTI, urinary retention, prostatitis, urethritis. Data reviewed: [facility] vital signs, nurses notes, lab test result(s), urinalysis. Data interpreted: hospital monitor: rate is 99 beats/min, rhythm is regular, Pulse oximetry: on room air is 99 %. Counseling: I had a detailed discussion with the patient and/or guardian regarding: the historical points, exam findings, and any diagnostic results supporting the discharge/admit diagnosis, lab results. 02:57 ED course: no sex until partner is treated. [facility] 04/06 00:55 Order name: Urine Microscopic Only [facility] 04/06 00:57 Order name: Urine Dipstick--Ancillary (enter results) [facility] 04/06 01:19 Order name: Urine Microscopic Only; Complete Time: 02:45 [facility] 04/06 00:55 Order name: Urine Dipstick-Ancillary (obtain specimen); Complete Time: 07:25 [facility] Administered Medications: 03:21 Drug: Rocephin (cefTRIAXone) 1 grams Route: IM; Site: left gluteus; sg 03:21 Drug: Doxycycline 200 mg Route: PO; sg 03:21 Drug: Zithromax 1 grams Route: PO; sg Disposition: 04/06/20 02:56 Discharged to Home. Impression: Urethral discharge, Urethritis and urethral syndrome. - Condition is Stable. - Discharge Instructions: Sexually Transmitted Disease, Sexually Transmitted Disease, [id number], Urethritis, Adult. - Prescriptions for Doxycycline Hyclate 100 mg Oral Tablet - take 1 tablet by ORAL route every 12 hours; 20 tablet. Cipro 500 mg Oral Tablet - take 1 tablet by ORAL route every 12 hours for 7 days; 14 tablet. - Medication Reconciliation Form, Thank You Letter, Antibiotic Education, Prescription Opioid Use form. - Follow up: Private Physician; When: 2 - 3 days; Reason: Recheck today's complaints, Continuance of care, Re-evaluation by your physician. - Problem is new. - Symptoms have improved. Signatures: Dispatcher [employer] EDMS Harley Will RN RN sg Anderson, Corey, MD MD cha Pena, Laura RN RN lp1 Nohelia Bautista RN RN ea Robles, Autumn ar5 Corrections: (The following items were deleted from the chart) 03:34 02:56 04/06/2020 02:56 Discharged to Home. Impression: Urethral discharge; Urethritis ea and urethral syndrome. Condition is Stable. Forms are Medication Reconciliation Form, Thank You Letter, Antibiotic Education, Prescription Opioid Use. Follow up: Private Physician; When: 2 - 3 days; Reason: Recheck today's complaints, Continuance of care, Re-evaluation by your physician. Problem is new. Symptoms have improved. osmin
--- NOTE | 2020-04-06 02:57 | ER ---
Nurse's Notes [facility] Name: David Lai Age: 24 yrs Sex: Male : 1995 Arrival Date: 04/05/2020 Time: 22:35 Bed 16 Private MD: Diagnosis: Urethral discharge;Urethritis and urethral syndrome Presentation: 04/05 23:07 Chief complaint: Patient states: Yellow discharge from penis that began 2 days ago; lp1 States pain and burning with urination; Concerned about STD transmission. Coronavirus screen: Patient denies a cough. Patient denies shortness of breath or difficulty breathing. Patient denies measured and/or subjective temperature greater than 100.4F prior to today's visit. Patient denies travel on a cruise ship or to a country the [facility] currently lists as an affected area. Patient denies contact with known and/or suspected case of COVID-19. Ebola Screen: No symptoms or risks identified at this time. Risk Assessment: Do you want to hurt yourself or someone else? Patient reports no desire to harm self or others. Onset of symptoms was April 05, 2020. 23:07 Method Of Arrival: Ambulatory lp1 23:07 Acuity: ASHLEY 4 lp1 23:12 Initial Sepsis Screen: Does the patient meet any 2 criteria? No. Patient's initial lp1 sepsis screen is negative. Does the patient have a suspected source of infection? No. Patient's initial sepsis screen is negative. Triage Assessment: 04/06 07:25 General: Appears. ea Historical: - Allergies: 04/05 23:09 No Known Allergies; lp1 - Home Meds: 23:09 None [Active]; lp1 - PMHx: 23:09 None; lp1 - PSHx: 23:09 None; lp1 - Immunization history:: Adult Immunizations up to date. - Social history:: Smoking status: Patient reports the use of cigarette tobacco products, smokes one pack cigarettes per day. Screenin:09 Abuse screen: Denies threats or abuse. Denies injuries from another. Nutritional lp1 screening: No deficits noted. Tuberculosis screening: No symptoms or risk factors identified. Fall Risk None identified. Assessment: 04/06 03:00 General: Appears in no apparent distress. Behavior is calm, cooperative, appropriate ea for age. Pain: Denies pain. Neuro: Level of Consciousness is awake, alert, obeys commands, Oriented to person, place, time, situation. Cardiovascular: Patient's skin is warm and dry. Derm: Skin is pink, warm \T\ dry. Vital Signs: 04/05 23:11 BP 112 / 75; Pulse 91; Resp 16; Temp 99(TE); Pulse Ox 99% on R/A; Weight 61.23 kg (R); lp1 Height 5 ft. 9 in. (175.26 cm); Pain 6/10; 23:11 Body Mass Index 19.94 (61.23 kg, 175.26 cm) lp1 ED Course: 22:35 Patient arrived in ED. cl3 23:08 Triage completed. lp1 23:08 Arm band placed on right wrist. lp1 07 02:23 John Garcia MD is Attending Physician. osmin 02:50 Niki Morel, RN is Primary Nurse. lp1 03:00 Patient has correct armband on for positive identification. Bed in low position. Call ea light in reach. Side rails up X 1. 03:21 Harley Will, RN is Primary Nurse. sg 03:30 Patient did not have IV access during this emergency room visit. ea 07:25 No provider procedures requiring assistance completed. ea Administered Medications: 03:21 Drug: Rocephin (cefTRIAXone) 1 grams Route: IM; Site: left gluteus; sg 03:21 Drug: Doxycycline 200 mg Route: PO; sg 03:21 Drug: Zithromax 1 grams Route: PO; sg Outcome: 02:56 Discharge ordered by . [facility] 03:34 Discharged to home ambulatory. ea 03:34 Condition: stable 03:34 Discharge instructions given to patient, Instructed on discharge instructions, follow up and referral plans. medication usage, Demonstrated understanding of instructions, follow-up care, medications, Prescriptions given X 2. 03:34 Patient left the ED. ea Signatures: Harley Will RN RN sg Anderson, Corey, MD MD cha Pena, Laura, RN VIKR[facility] Nohelia Bautista RN RN ea Lewis, Charde cl3
[2020-04-06] MEDS ORDERED: AZITHROMYCIN 250 MG TAB ONE (03:07)
[2020-04-06] MEDS ORDERED: CEFTRIAXONE 1000 MG/VIAL ONE (03:08)
[2020-04-06] MEDS ORDERED: DOXYCYCLINE 100 MG CAP PO ONE (03:08)
[2020-04-06 03:57] VITALS: BP 112/75; TEMP 99; O2SAT 99
[2020-04-06 21:54] LABS: Urine Blood 2+ (NEG); Urine Glucose NEGATIVE (NEG); Urine Protein 2+ (NEG); Urine Specific Gravity >1.030 (1.005-1.030); Urine pH 5.5 (5.0-7.0)
== END 2020-04-06 03:34 | disposition home or self-care (01) ==
LOC: ER 22:33
DX: N34.2 Other urethritis (principal); N34.3 Urethral syndrome, unspecified; R36.9 Urethral discharge, unspecified; F17.210 Nicotine dependence, cigarettes, uncomplicated
CPT/HCPCS: 81003; 81015; 87086; 87088; 96372; 99283

== ENCOUNTER 2020-05-20 16:18 | Emergency (ER) | payer SELFPAY ==
--- NOTE | 2020-05-20 18:27 | EDPHYS ---
Physician Documentation [facility] Name: David Lai Age: 24 yrs Sex: Male : 1995 Arrival Date: 05/20/2020 Time: 16:20 Bed External Waiting Private MD: John Chaudhry HPI: 05/20 18:23 This 24 yrs old Male presents to ER via Ambulatory with complaints of Penile jmm Pain, Penile Discharge. 18:23 The patient presents with symptoms include yellow penile discharge. Onset: The jmm symptoms/episode began/occurred gradually, 1 day(s) ago. Modifying factors: The symptoms are alleviated by nothing, the symptoms are aggravated by nothing. Associated signs and symptoms: Pertinent positives: dysuria, Pertinent negatives: fever, hematuria. The patient has experienced similar episodes in the past. Historical: - Allergies: 16:43 No Known Allergies; jd3 - Home Meds: 16:43 None [Active]; jd3 - PMHx: 16:43 Anxiety; jd3 - PSHx: 16:43 None; jd3 - Immunization history:: Adult Immunizations up to date. - Social history:: Smoking status: Patient reports the use of cigarette tobacco products, smokes one pack cigarettes per day. ROS: 18:23 Constitutional: Negative for fever, chills, and weight loss, Cardiovascular: Negative jmm for chest pain, palpitations, and edema, Respiratory: Negative for shortness of breath, cough, wheezing, and pleuritic chest pain. 18:23 : Positive for urinary symptoms. 18:23 All other systems are negative. Exam: 18:23 Constitutional: This is a well developed, well nourished patient who is awake, alert, jmm and in no acute distress. Head/Face: atraumatic. Eyes: EOMI, no conjunctival erythema appreciated ENT: Moist Mucus Membranes Neck: Trachea midline, Supple Chest/axilla: Normal chest wall appearance and motion. Cardiovascular: Regular rate and rhythm. No edema appreciated Respiratory: Normal respirations, no respiratory distress appreciated Abdomen/GI: Non distended, soft Back: Normal ROM Skin: General appearance color normal MS/ Extremity: Moves all extremities, no obvious deformities appreciated, no edema noted to the lower extremities Neuro: Awake and alert, normal gait Psych: Behavior is normal, Mood is normal, Patient is cooperative and pleasant Vital Signs: 16:44 BP 102 / 74; Pulse 84; Resp 17 S; Temp 98.0(O); Pulse Ox 100% on R/A; Weight 58.97 kg jd3 (R); Height 5 ft. 9 in. (175.26 cm) (R); Pain 6/10; 16:44 Body Mass Index 19.20 (58.97 kg, 175.26 cm) jd3 MDM: 17:15 Patient medically screened. [facility] 18:24 Data reviewed: vital signs, nurses notes. Counseling: I had a detailed discussion with rc the patient and/or guardian regarding: the historical points, exam findings, and any diagnostic results supporting the discharge/admit diagnosis, the need for outpatient follow up, to return to the emergency department if symptoms worsen or persist or if there are any questions or concerns that arise at home. 05/20 18:08 Order name: Urine Microscopic Only; Complete Time: 19:20 [facility] 05/20 18:26 Order name: GC ([place]/Chl) Probe URINE [facility] 05/20 18:31 Order name: Urine Dipstick--Ancillary (enter results); Complete Time: 18:54 id 05/20 19:20 Order name: Urine Culture [facility] 05/20 18:08 Order name: Urine Dipstick-Ancillary (obtain specimen); Complete Time: 18:30 [facility] Administered Medications: No medications were administered Disposition: 05/21 08:58 Co-signature as Attending Physician, John Garcia MD I agree with the assessment and [facility] plan of care. Disposition: 05/20/20 18:27 Discharged to Home. Impression: Dysuria. - Condition is Stable. - Discharge Instructions: Dysuria, Gonorrhea. - Medication Reconciliation Form, Thank You Letter, Antibiotic Education, Prescription Opioid Use form. - Follow up: Private Physician; When: 2 - 3 days; Reason: Recheck today's complaints, Continuance of care, Re-evaluation by your physician. Signatures: Dispatcher [employer] [facility] John Garcia MD MD cha Mickail, Joel, PA PA jmm Davies, Jonathon, RN RN jd3 Acob, Cheryl, RN RN ca1 Corrections: (The following items were deleted from the chart) 05/20 20:04 18:27 05/20/2020 18:27 Discharged to Home. Impression: Dysuria. Condition is Stable. ca1 Forms are Medication Reconciliation Form, Thank You Letter, Antibiotic Education, Prescription Opioid Use. Follow up: Private Physician; When: 2 - 3 days; Reason: Recheck today's complaints, Continuance of care, Re-evaluation by your physician. rc
--- NOTE | 2020-05-20 18:27 | ER ---
Nurse's Notes [facility] Name: David Lai Age: 24 yrs Sex: Male : 1995 Arrival Date: 05/20/2020 Time: 16:20 Bed External Waiting [facility] MD: Diagnosis: Dysuria Presentation: 05/20 16:42 Chief complaint: Patient states: "I am having some discharge coming out and it is jd3 burning when I pee.". Coronavirus screen: At this time, the client does not indicate any symptoms associated with coronavirus-19. Ebola Screen: Patient negative for fever greater than or equal to 101.5 degrees Fahrenheit, and additional compatible Ebola Virus Disease symptoms. Initial Sepsis Screen: Does the patient meet any 2 criteria? No. Patient's initial sepsis screen is negative. Does the patient have a suspected source of infection? No. Patient's initial sepsis screen is negative. Risk Assessment: Do you want to hurt yourself or someone else? Patient reports no desire to harm self or others. Onset of symptoms was May 20, 2020. 16:42 Method Of Arrival: Ambulatory jd3 16:42 Acuity: ASHLEY 4 jd3 Historical: - Allergies: 16:43 No Known Allergies; jd3 - Home Meds: 16:43 None [Active]; jd3 - PMHx: 16:43 Anxiety; jd3 - PSHx: 16:43 None; jd3 - Immunization history:: Adult Immunizations up to date. - Social history:: Smoking status: Patient reports the use of cigarette tobacco products, smokes one pack cigarettes per day. Screenin:12 Abuse screen: Denies threats or abuse. Denies injuries from another. Nutritional ca1 screening: No deficits noted. Tuberculosis screening: No symptoms or risk factors identified. Fall Risk None identified. Assessment: 18:12 General: Appears in no apparent distress. comfortable, Behavior is calm, cooperative, ca1 appropriate for age. Pain: Complains of pain in groin Pain began 2-3 days ago. Aggravated by urination. Neuro: Level of Consciousness is awake, alert, obeys commands, Oriented to person, place, time, situation, Appropriate for age. : Reports burning with urination, discharge, from penis that is green, white, yellow, since 2 days ago. Derm: Skin is intact, is healthy with good turgor, Skin is pink, warm \\T\\ dry. Vital Signs: 16:44 BP 102 / 74; Pulse 84; Resp 17 S; Temp 98.0(O); Pulse Ox 100% on R/A; Weight 58.97 kg j (R); Height 5 ft. 9 in. (175.26 cm) (R); Pain 6/10; 16:44 Body Mass Index 19.20 (58.97 kg, 175.26 cm) [facility] ED Course: 16:20 Patient arrived in ED. ag5 16:43 Triage completed. jd3 16:44 Arm band placed on. jd3 16:47 Spenser Regalado PA is PHCP. [facility] 16:47 John Garcia MD is Attending Physician. [facility] 17:12 Dolores Reyes, RN is Primary Nurse. ca1 18:12 Patient has correct armband on for positive identification. Bed in low position. Call ca1 light in reach. Side rails up X 1. Pulse ox on. NIBP on. 18:30 Urine collected: clean catch specimen, cloudy. ca1 20:04 No provider procedures requiring assistance completed. Patient did not have IV access ca1 during this emergency room visit. Administered Medications: No medications were administered Outcome: 18:27 Discharge ordered by . [facility] 20:04 Eloped from patient exam room, after seeing physician Time discovered patient gone: ca1 May 20, 2020 at 19:40 20:04 Patient left the ED. ca1 Signatures: Spenser Regalado PA PA jmm Davies, Jonathon, RN RN Dolores Kirkland RN RN [facility] Aye Contreras ag
[2020-05-20 18:46] LABS: Urine Blood TRACE (NEG); Urine Glucose NEGATIVE (NEG); Urine Protein NEGATIVE (NEG)
[2020-05-20 19:19] LABS: Urine Bacteria <20 /HPF (NONE SEEN); Urine Culture Reflex Order REFLEXED
== END 2020-05-20 20:04 | disposition home or self-care (01) ==
LOC: ER 16:18
DX: R30.0 Dysuria (principal); F17.210 Nicotine dependence, cigarettes, uncomplicated
CPT/HCPCS: 81003; 81015; 87086; 87088; 87490; 87590; 99283

== ENCOUNTER 2020-05-26 00:13 | Emergency (ER) | payer SELFPAY ==
--- NOTE | 2020-05-26 01:11 | EDPHYS ---
Physician Documentation [facility] Name: David Lai Age: 24 yrs Sex: Male : 1995 Arrival Date: 05/26/2020 Time: 00:14 Bed 17 Private MD: John Chaudhry HPI: 05/26 01:06 This 24 yrs old Male presents to ER via Unassigned with complaints of GROIN osmin PAIN, DISCHARGE. 01:06 The patient presents with symptoms include yellow penile discharge, urinary symptoms, osmin dysuria. Onset: The symptoms/episode began/occurred 2 day(s) ago. Modifying factors: The symptoms are alleviated by nothing, the symptoms are aggravated by urinating, sexual intercourse. Associated signs and symptoms: The patient has no apparent associated signs or symptoms. Severity of symptoms: At their worst the symptoms were mild, moderate, in the emergency department the symptoms are unchanged. The patient has not experienced similar symptoms in the past. Historical: - Allergies: 01:00 No Known Allergies; rr5 - Home Meds: 01:00 None [Active]; rr5 - PMHx: 01:00 Anxiety; rr5 - PSHx: 01:00 None; rr5 - Immunization history:: Adult Immunizations unknown. - Social history:: Smoking status: Patient reports the use of cigarette tobacco products, smokes one-half pack cigarettes per day, Patient uses street drugs, marijuana. - Family history:: not pertinent. ROS: 01:07 Constitutional: Negative for fever, chills, and weight loss, Eyes: Negative for injury, osmin pain, redness, and discharge, ENT: Negative for injury, pain, and discharge, Neck: Negative for injury, pain, and swelling, Cardiovascular: Negative for chest pain, palpitations, and edema, Respiratory: Negative for shortness of breath, cough, wheezing, and pleuritic chest pain, Abdomen/GI: Negative for abdominal pain, nausea, vomiting, diarrhea, and constipation, Back: Negative for injury and pain, MS/Extremity: Negative for injury and deformity, Skin: Negative for injury, rash, and discoloration, Neuro: Negative for headache, weakness, numbness, tingling, and seizure, Psych: Negative for depression, anxiety, suicide ideation, homicidal ideation, and hallucinations, Allergy/Immunology: Negative for hives, rash, and allergies, Endocrine: Negative for neck swelling, polydipsia, polyuria, polyphagia, and marked weight changes, Hematologic/Lymphatic: Negative for swollen nodes, abnormal bleeding, and unusual bruising. :07 : Positive for urinary symptoms, burning with urination, penile discharge, penile pain. Exam: :07 Constitutional: This is a well developed, well nourished patient who is awake, alert, osmin and in no acute distress. Head/Face: Normocephalic, atraumatic. Eyes: Pupils equal round and reactive to light, extra-ocular motions intact. Lids and lashes normal. Conjunctiva and sclera are non-icteric and not injected. Cornea within normal limits. Periorbital areas with no swelling, redness, or edema. ENT: Nares patent. No nasal discharge, no septal abnormalities noted. Tympanic membranes are normal and external auditory canals are clear. Oropharynx with no redness, swelling, or masses, exudates, or evidence of obstruction, uvula midline. Mucous membranes moist. Neck: Trachea midline, no thyromegaly or masses palpated, and no cervical lymphadenopathy. Supple, full range of motion without nuchal rigidity, or vertebral point tenderness. No Meningismus. Chest/axilla: Normal chest wall appearance and motion. Nontender with no deformity. No lesions are appreciated. Cardiovascular: Regular rate and rhythm with a normal S1 and S2. No gallops, murmurs, or rubs. Normal PMI, no JVD. No pulse deficits. Respiratory: Lungs have equal breath sounds bilaterally, clear to auscultation and percussion. No rales, rhonchi or wheezes noted. No increased work of breathing, no retractions or nasal flaring. Abdomen/GI: Soft, non-tender, with normal bowel sounds. No distension or tympany. No guarding or rebound. No evidence of tenderness throughout. Back: No spinal tenderness. No costovertebral tenderness. Full range of motion. Skin: Warm, dry with normal turgor. Normal color with no rashes, no lesions, and no evidence of cellulitis. MS/ Extremity: Pulses equal, no cyanosis. Neurovascular intact. Full, normal range of motion. Neuro: Awake and alert, GCS 15, oriented to person, place, time, and situation. Cranial nerves II-XII grossly intact. Motor strength 5/5 in all extremities. Sensory grossly intact. Cerebellar exam normal. Normal gait. Psych: Awake, alert, with orientation to person, place and time. Behavior, mood, and affect are within normal limits. 01:07 : CVA tenderness, is absent, Male external genitalia: normal, Circumcision noted. Bladder: is normal, non-distended, Sexual behavior: the patient is sexually active, and reports a single partner. Vital Signs: 01:00 BP 124 / 85; Pulse 82; Resp 16; Temp 98; Pulse Ox 99% ; Weight 61.23 kg; Height 5 ft. 9 rr5 in. (175.26 cm); Pain 8/10; 01:33 BP 121 / 70; Pulse 80; Resp 17; Pulse Ox 99% ; rr5 01:00 Body Mass Index 19.94 (61.23 kg, 175.26 cm) rr5 MDM: 00:29 Patient medically screened. [facility] 01:09 Data reviewed: vital signs, nurses notes. [facility] 05/26 01:17 Order name: Urine Dipstick--Ancillary (enter results) mw2 Administered Medications: 01:15 Drug: Ibuprofen 600 mg Route: PO; rr5 01:30 Follow up: Response: No adverse reaction rr5 01:20 Drug: Rocephin (cefTRIAXone) 1 grams Route: IM; Site: right gluteus; rr5 01:30 Follow up: Response: No adverse reaction rr5 01:30 Follow up: Response: Medication administered at discharge. rr5 01:20 Drug: Zithromax 1 grams Route: PO; rr5 01:30 Follow up: Response: Medication administered at discharge. rr5 01:20 Drug: Doxycycline 200 mg Route: PO; rr5 01:30 Follow up: Response: Medication administered at discharge. rr5 01:20 Drug: [place] 10 mg-325 mg 1 tabs {Note: rass 0.} Route: PO; rr5 01:30 Follow up: Response: Medication administered at discharge. rr5 Disposition: 05/26/20 01:11 Discharged to Home. Impression: Dysuria - fear of std, symptoms of gonorrhea, Urethral discharge without blood. - Condition is Stable. - Discharge Instructions: Dysuria, Sexually Transmitted Disease, Sexually Transmitted Disease, [id number]. - Prescriptions for Ibuprofen 600 mg Oral Tablet - take 1 tablet by ORAL route every 6 hours As needed take with food; 21 tablet. Doxycycline Hyclate 100 mg Oral Tablet - take 1 tablet by ORAL route every 12 hours; 20 tablet. - Medication Reconciliation Form, Thank You Letter, Antibiotic Education, Prescription Opioid Use form. - Follow up: Private Physician; When: 2 - 3 days; Reason: Recheck today's complaints, Continuance of care, Re-evaluation by your physician. - Problem is new. - Symptoms have improved. Signatures: Dispatcher [employer] [facility] John Garcia MD MD cha Westbrook, MyKena mw2 Santi Rivas RN RN rr5 Corrections: (The following items were deleted from the chart) 01:34 01:11 05/26/2020 01:11 Discharged to Home. Impression: Dysuria - fear of std, symptoms mw2 of gonorrhea; Urethral discharge without blood. Condition is Stable. Forms are Medication Reconciliation Form, Thank You Letter, Antibiotic Education, Prescription Opioid Use. Follow up: Private Physician; When: 2 - 3 days; Reason: Recheck today's complaints, Continuance of care, Re-evaluation by your physician. Problem is new. Symptoms have improved. osmin
[2020-05-26] MEDS ORDERED: AZITHROMYCIN 250 MG TAB ONE (01:22)
[2020-05-26] MEDS ORDERED: CEFTRIAXONE 1000 MG/VIAL ONE (01:22)
[2020-05-26] MEDS ORDERED: IBUPROFEN 200 MG TAB PO ONE (01:23)
[2020-05-26] MEDS ORDERED: WATER FOR INJ,STERILE 10 ML ONE (01:23)
[2020-05-26] MEDS ORDERED: IBUPROFEN 400 MG TAB ONE (01:23)
[2020-05-26] MEDS ORDERED: DOXYCYCLINE 100 MG CAP PO ONE (01:23)
--- NOTE | 2020-05-26 01:35 | ER ---
Nurse's Notes [facility] Name: David Lai Age: 24 yrs Sex: Male : 1995 Arrival Date: 05/26/2020 Time: 00:14 Bed 17 Private MD: Diagnosis: Dysuria-fear of std, symptoms of gonorrhea;Urethral discharge without blood Presentation: 05/26 01:00 Chief complaint: Patient states: I have discharge on my penile area, yellowish with rr5 blood. I had unprotected sex a week ago, now its hurting. 01:00 Coronavirus screen: Client denies travel out of the [place] in the last 14 days. At this rr5 time, the client does not indicate any symptoms associated with coronavirus-19. Ebola Screen: Patient negative for fever greater than or equal to 101.5 degrees Fahrenheit, and additional compatible Ebola Virus Disease symptoms Patient denies exposure to infectious person. Patient denies travel to an Ebola-affected area in the 21 days before illness onset. Initial Sepsis Screen: Does the patient meet any 2 criteria? No. Patient's initial sepsis screen is negative. Does the patient have a suspected source of infection? No. Patient's initial sepsis screen is negative. Risk Assessment: Do you want to hurt yourself or someone else? Patient reports no desire to harm self or others. Onset of symptoms was May 26, 2020. 01:00 Method Of Arrival: Ambulatory rr5 01:00 Acuity: ASHLEY 4 rr5 Historical: - Allergies: 01:00 No Known Allergies; rr5 - Home Meds: 01:00 None [Active]; rr5 - PMHx: 01:00 Anxiety; rr5 - PSHx: 01:00 None; rr5 - Immunization history:: Adult Immunizations unknown. - Social history:: Smoking status: Patient reports the use of cigarette tobacco products, smokes one-half pack cigarettes per day, Patient uses street drugs, marijuana. - Family history:: not pertinent. Screenin:00 Abuse screen: Denies threats or abuse. Denies injuries from another. Nutritional rr5 screening: No deficits noted. Tuberculosis screening: No symptoms or risk factors identified. Fall Risk None identified. Total Dubois Fall Scale indicates No Risk (0-24 pts). Assessment: 01:00 General: Appears in no apparent distress. uncomfortable, Behavior is calm, cooperative, rr5 appropriate for age. 01:00 Pain: Complains of pain in pelvis Pain currently is 8 out of 10 on a pain scale. rr5 Quality of pain is described as aching, Pain began gradually, Is intermittent. Neuro: Level of Consciousness is awake, alert, obeys commands, Oriented to person, place, time, situation. Cardiovascular: Capillary refill < 3 seconds Patient's skin is warm and dry. Respiratory: Airway is patent Respiratory effort is even, unlabored, Respiratory pattern is regular, symmetrical. GI: No signs and/or symptoms were reported involving the gastrointestinal system. : Reports burning with urination, discharge, from penis that is bloody, yellow. EENT: No signs and/or symptoms were reported regarding the EENT system. Derm: Skin is intact, is healthy with good turgor, Skin temperature is warm. Musculoskeletal: Circulation, motion, and sensation intact. Capillary refill < 3 seconds. 01:30 Reassessment: Patient appears in no apparent distress at this time. Patient is alert, rr5 oriented x 3, equal unlabored respirations, skin warm/dry/pink. discharge instruction given and explained without complaints made. Vital Signs: 01:00 BP 124 / 85; Pulse 82; Resp 16; Temp 98; Pulse Ox 99% ; Weight 61.23 kg; Height 5 ft. 9 rr5 in. (175.26 cm); Pain 8/10; 01:33 BP 121 / 70; Pulse 80; Resp 17; Pulse Ox 99% ; rr5 01:00 Body Mass Index 19.94 (61.23 kg, 175.26 cm) rr5 ED Course: 00:14 Patient arrived in ED. ag3 00:29 John Garcia MD is Attending Physician. osmin 01:00 Arm band placed on right wrist. rr5 01:05 Patient has correct armband on for positive identification. Call light in reach. Side rr5 rails up X2. Pulse ox on. NIBP on. 01:10 Santi Rivas RN is Primary Nurse. rr5 01:23 Triage completed. rr5 01:33 No provider procedures requiring assistance completed. Patient did not have IV access rr5 during this emergency room visit. Administered Medications: 01:15 Drug: Ibuprofen 600 mg Route: PO; rr5 01:30 Follow up: Response: No adverse reaction rr5 01:20 Drug: Rocephin (cefTRIAXone) 1 grams Route: IM; Site: right gluteus; rr5 01:30 Follow up: Response: No adverse reaction rr5 01:30 Follow up: Response: Medication administered at discharge. rr5 01:20 Drug: Zithromax 1 grams Route: PO; rr5 01:30 Follow up: Response: Medication administered at discharge. rr5 01:20 Drug: Doxycycline 200 mg Route: PO; rr5 01:30 Follow up: Response: Medication administered at discharge. rr5 01:20 Drug: [place] 10 mg-325 mg 1 tabs {Note: rass 0.} Route: PO; rr5 01:30 Follow up: Response: Medication administered at discharge. rr5 Outcome: 01:11 Discharge ordered by . osmin 01:30 Discharged to home ambulatory. rr5 01:30 Condition: stable 01:30 Discharge instructions given to patient, Instructed on discharge instructions, follow up and referral plans. medication usage, Demonstrated understanding of instructions, follow-up care, medications, Prescriptions given X 2. 01:34 Patient left the ED. mw2 Signatures: John Garcia MD MD cha Westbrook, MyKena mw2 Rach Shea 3 Santi Rivas, RN RN rr5
[2020-05-26 01:36] LABS: Urine Blood 1+ (NEG); Urine Glucose NEGATIVE (NEG); Urine Protein NEGATIVE (NEG); Urine Specific Gravity 1.015 (1.005-1.030)
[2020-05-30 08:23] VITALS: TEMP 98; O2SAT 99
[2020-05-30 08:24] VITALS: BP 121/70
== END 2020-05-26 01:34 | disposition home or self-care (01) ==
LOC: ER 00:13
DX: R36.0 Urethral discharge without blood (principal); F17.210 Nicotine dependence, cigarettes, uncomplicated
CPT/HCPCS: 81003; 96372; 99283

== ENCOUNTER 2025-05-20 08:39 | Emergency (ER) | payer SELFPAY ==
--- NOTE | 2025-05-20 08:46 | EDPHYS ---
Physician Documentation [facility] Name: David Lai Age: 29 yrs Sex: Male : 1995 Arrival Date: 05/20/2025 Time: 08:39 Bed 6 Private MD: ED Physician Diann Crawford HPI: 05/20 08:41 This 29 yrs old Male presents to ER via Unassigned with complaints of "unresponsive sp3 behavior". 08:41 29-year-old male with history of anxiety now presents via EMS while in police custody sp3 for "unresponsive episode". Patient was in the process of getting arrested in an stopped moving. EMS activated who found eyes fluttering and who woke up with ammonia tablet instantly. Blood sugar was normal. Since then patient has been yelling and screaming but has had normal vital signs. Patient is restrained by police. ROS limited as well as history physical secondary to patient cooperation.. Historical: - Allergies: 08:46 No Known Allergies; aa5 - PMHx: 08:46 Anxiety; Pt uncooperative and unwilling to verify medical hx and allergies, previous hx aa5 retrieved from previous visit. (Anxiety); - Immunization history:: Adult Immunizations unknown. - Infectious Disease History:: unknown, pt uncooperative. . - Social history:: Smoking status: unknown. ROS: 08:42 Unable to obtain ROS due to patient being uncooperative, sp3 Exam: 08:42 Constitutional: The patient appears Patient fully alert, screaming at staff as well as sp3 police, in no acute distress. No focal deficits noted. Speech is comprehensible. Vital signs are normal. 08:42 Unable to obtain exam due to patient being uncooperative, Vital Signs: 08:40 BP 101 / 47; Pulse 93; Resp 20 S; Temp 97.6(A); Pulse Ox 99% on R/A; aa5 08:40 Pt refused oral temperature. Pt moving and screaming during VS. aa5 MDM: 08:40 Medical Screening Exam initiated sp3 08:43 Data reviewed: vital signs, nurses notes. ED course: 29-year-old male now with normal sp3 exam in police custody. No medical intervention indicated. Vital signs are normal. Will safely discharge patient back to police custody.. 05/20 08:41 Order name: Vital Signs; Complete Time: 08:43 sp3 Administered Medications: No medications were administered Disposition Summary: 05/20/25 08:45 Discharge Ordered Notes: Location: Home sp3 Condition: Stable sp3 Diagnosis - Altered mental status resolved, anxiety, police custody sp3 Followup: sp3 - With: Private Physician - When: As needed - Reason: Continuance of care Discharge Instructions: - Discharge Summary Sheet sp3 - Managing Anxiety, Adult sp3 Forms: - Medication Reconciliation Form sp3 - Antibiotic Education sp3 - Prescription Opioid Use sp3 - Patient Portal Instructions sp3 - Leadership Thank You Letter sp3 Signatures: Katherine Sabillon RN RN aa5 Diann Crawford MD MD sp3
--- NOTE | 2025-05-20 08:46 | ER ---
Nurse's Notes [facility] Name: David Lai Age: 29 yrs Sex: Male : 1995 Arrival Date: 05/20/2025 Time: 08:39 Bed 6 Private MD: Diagnosis: Altered mental status resolved, anxiety, police custody Presentation: 05/20 08:40 Onset of symptoms was May 20, 2025. aa5 08:40 Acuity: ASHLEY 3 aa5 08:40 Coronavirus screen: At this time, the client does not indicate any symptoms associated aa5 with coronavirus-19. Ebola Screen: Patient denies travel to an Ebola-affected area in the 21 days before illness onset. Initial Sepsis Screen: Does the patient meet any 2 criteria? HR > 90 bpm. Does the patient have a suspected source of infection? No. Patient's initial sepsis screen is negative. Risk Assessment: Do you want to hurt yourself or someone else? Unable to obtain Other: Pt uncooperative. 08:40 Method Of Arrival: EMS: [facility] aa5 08:40 Chief complaint: EMS states: Pt ran away from the police and was unresponsive upon aa5 scene arrival. Pt shouting to PD during triage, pt uncooperative answering questions . 08:40 Care prior to arrival: Glucose check: 100. aa5 Historical: - Allergies: 08:46 No Known Allergies; aa5 - PMHx: 08:46 Anxiety; Pt uncooperative and unwilling to verify medical hx and allergies, previous hx aa5 retrieved from previous visit. (Anxiety); - Immunization history:: Adult Immunizations unknown. - Infectious Disease History:: unknown, pt uncooperative. . - Social history:: Smoking status: unknown. Screenin:40 [facility] ED Fall Risk Assessment (Adult) History of falling in the last 3 months, aa5 including since admission No falls in past 3 months (0 pts) Confusion or Disorientation No (0 pts) Intoxicated or Sedated No (0 pts) Impaired Gait No (0 pts) Mobility Assist Device Used No (0 pt) Altered Elimination No (0 pt) Score/Fall Risk Level 0 - 2 = Low Risk Oriented to surroundings, Maintained a safe environment, Educated pt \T\ family on fall prevention, incl call for assistance when getting out of bed, Assessed \T\ reinforced patient's understanding of fall precautions. Abuse screen: Denies threats or abuse. Nutritional screening: No deficits noted. Tuberculosis screening: No symptoms or risk factors identified. Assessment: 08:40 General: Appears uncomfortable, Behavior is restless, uncooperative, shouting to PD at aa5 bedside and to medical staff, refusing to answer questions. . Pain: Complains of pain in right leg and left leg, pt c/o leg restraint that was placed by PD [employer]. Neuro: Level of Consciousness is awake, alert, obeys commands, Oriented to person, place, time, situation. Cardiovascular: Patient's skin is warm and dry. Respiratory: Airway is patent Respiratory effort is even, unlabored, Respiratory pattern is regular, symmetrical. GI: Abdomen is non-distended. : No signs and/or symptoms were reported regarding the genitourinary system. EENT: Oral mucosa is moist. Derm: Skin is dry, Skin is red, Skin temperature is warm. Musculoskeletal: Handcuffs noted Reports pain in right leg and left leg. Vital Signs: 08:40 BP 101 / 47; Pulse 93; Resp 20 S; Temp 97.6(A); Pulse Ox 99% on R/A; aa5 08:40 Pt refused oral temperature. Pt moving and screaming during VS. aa5 ED Course: 08:40 Patient arrived in ED. sp3 08:40 Diann Crawford MD is Attending Physician. sp3 08:40 Patient placed in an exam room, on a stretcher. aa5 08:40 Patient has correct armband on for positive identification. Call light in reach. Side aa5 rails up X2. Pt restrained by handcuffs by [place] [employer] and leg mesh restraint by [place] [employer]. 08:42 Katherine Sabillon, RN is Primary Nurse. aa5 08:44 Triage completed. aa5 08:50 No provider procedures requiring assistance completed. Patient did not have IV access aa5 during this emergency room visit. Administered Medications: No medications were administered Medication: 08:50 VIS not applicable for this client. aa5 Outcome: 08:45 Discharge ordered by . sp3 08:50 Discharged to Law enforcement, [place] [employer] officers. aa5 08:50 Condition: stable 08:50 Instructed on discharge instructions, follow up and referral plans. Demonstrated understanding of instructions, follow-up care, 08:51 Patient left the ED. aa5 Signatures: Katherine Sabillon RN RN aa5 Diann Crawford MD MD sp3 Corrections: (The following items were deleted from the chart) 08:47 08:40 BP 101 / 47; Pulse 93bpm; Resp 20bpm; Spontaneous; Pulse Ox 99% RA; Temp 97.6F aa5 Axillary; Pt refused oral temperature ; aa5
[2025-05-20 08:55] VITALS: BP 101/47; TEMP 97.6; O2SAT 99
== END 2025-05-20 08:51 | disposition home or self-care (01) ==
LOC: ER 08:39
DX: F41.9 Anxiety disorder, unspecified (principal)
CPT/HCPCS: 99283